=== PATIENT | female | born 1930 | race Hispanic/Latino ===

== ENCOUNTER 2016-10-21 16:40 | Emergency (ER) | payer MEDICARE, BC ==
[2016-10-21 16:41] VITALS: BMI 30.1
[2016-10-21 17:14] VITALS: BP 144/70; PULSE 74; RESP 16; TEMP 98.4; O2SAT 98
--- NOTE | 2016-10-21 18:48 | ED PDOC ---
Lower Extremity Pain/Injury Time Seen by Provider: 10/21/16 18:30 Chief Complaint (Nursing): Lower Extremity Problem/Injury Chief Complaint (Provider): Foot and ankle injury History Per: Patient History/Exam Limitations: no limitations Onset/Duration Of Symptoms: Days Current Symptoms Are (Timing): Still Present Additional Complaint(s): Pt. with R foot, ankle pain. R knee pain. Ongoing for 5 days after injury. She has a bed that is partially tilted and when sleeping she accidentally rolled off. Did not hit head. No LOC. No numbness, tingles, headaches, weakness. Seen by her pcp and told to get x-rays and has rx. Here to eval of injury as it has gotten blacken blue. 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 - Family History Family History: States: Unknown Family Hx - Social History Current smoker - smoking cessation education provided: No Alcohol: None Drugs: Denies - Allergies Allergies/Adverse Reactions: Allergies Allergy/AdvReac Type Severity Reaction Status Date / Time codeine Allergy RASH Verified 10/21/16 17:12 Penicillins Allergy RASH Verified 10/21/16 17:12 Review of Systems Constitutional: Negative for: Weakness Eyes: Negative for: Pain, Vision Change Cardiovascular: Negative for: Chest Pain, Light Headedness Respiratory: Negative for: Shortness of Breath Gastrointestinal: Negative for: Nausea, Vomiting Musculoskeletal: Positive for: Leg Pain, Foot Pain. Negative for: Neck Pain, Shoulder Pain, Arm Pain Neurological: Negative for: Weakness, Dizziness Physical Exam - Reviewed Nursing Documentation Reviewed: Yes Vital Signs Reviewed: Yes - Physical Exam Appears: Positive for: Non-toxic, No Acute Distress Head Exam: Positive for: ATRAUMATIC, NORMAL INSPECTION, NORMOCEPHALIC Skin: Positive for: Normal Color, Warm, DRY Eye Exam: Positive for: Normal appearance, EOMI, PERRL Neck: Positive for: Normal, Painless ROM, Supple Cardiovascular/Chest: Positive for: Regular Rate, Rhythm Respiratory: Positive for: CNT, Normal Breath Sounds Pulses-Dorsalis Pedis (L): 2+ Pulses-Dorsalis Pedis (R): 2+ Pulses-Post. Tibialis (L): 2+ Pulses-Post. Tibialis (R): 2+ Back: Positive for: Normal Inspection. Negative for: L CVA Tenderness, R CVA Tenderness Extremity: Positive for: Normal ROM, Tenderness (L lateral classifier tender, mild swelling and echymosis; L ankle lateral mild swelling. L ankle and foot with full ROM. R knee diffuse mild tender, no laxity of joint, no erythema, has full ROM.) Neurologic/Psych: Positive for: Alert, Oriented - ECG O2 Sat by Pulse Oximetry: 98 - Progress ED Course And Treament: 1851: Dr. Wing to take over care. Fu on x-rays. Disposition - Clinical Impression Clinical Impression: Knee pain, Ankle pain, Pain of foot - Patient ED Disposition Is Patient to be Admitted: Transfer of Care - Disposition Disposition: Transfer of Care Disposition Time: 18:52 Condition: STABLE Patient Signed Over To: Gilbert Wing
--- NOTE | 2016-10-21 21:53 | ED PDOC ---
- ECG O2 Sat by Pulse Oximetry: 98 (RA) Pulse Ox Interpretation: Normal Medical Decision Making Medical Decision Makin signed over to me by Heike Gonzalez MD pending XRs. 2144 XRs are negative per my read. Patient states she has pain medications leftover at with her and does not need Rx to go home. Disposition - Clinical Impression Clinical Impression: Knee pain, Ankle pain, Foot pain - POA Present On Arrival: None - Disposition Referrals: Jennifer Rivera MD [Staff Provider] - Disposition: Routine/Home Disposition Time: 21:45 Condition: STABLE Prescriptions: Acetaminophen [8 Hour Pain Relief] 650 mg PO Q4 #30 tablet.er Instructions: Fall Prevention for Older Adults (ED), Contusion in Adults (DC) Additional Comments - Additional Comments Additional Comments: Scribe Attestation: Documented by Jordi Ball acting as a scribe for Rey Wing MD. Scribe Attestation: All medical record entries made by the Scribe were at my direction and personally dictated by me. I have reviewed the chart and agree that the record accurately reflects my personal performance of the history, physical exam, medical decision making, and the department course for this patient. I have also personally directed, reviewed, and agree with the discharge instructions and disposition.
--- NOTE | 2016-10-22 08:21 | RAD ---
PROCEDURE: Left Foot Radiographs. HISTORY: pain and injury COMPARISON: None. FINDINGS: BONES: No evidence of acute fracture. Diffuse osteopenia. Small calcaneal spur is noted. JOINTS: Arthritic degenerative changes. SOFT TISSUES: Normal. OTHER FINDINGS: None. IMPRESSION: No radiographic evidence of acute fracture or dislocation. Osteopenia. Small calcaneal spur.
--- NOTE | 2016-10-22 08:22 | RAD ---
PROCEDURE: Right Knee Radiographs. HISTORY: injury COMPARISON: Comparison is made to the previous study dated 05/04/2014 FINDINGS: BONES: Patient status post right knee replacement/arthroplasty. No significant interval change in the osseous structures since the previous exam. JOINTS: Normal. No osteoarthritis. JOINT EFFUSION: No radiographic evidence of significant joint effusion. OTHER FINDINGS: None. IMPRESSION: No radiographic evidence of acute pathology or significant interval change since the previous study. Mild soft tissue swelling.
--- NOTE | 2016-10-22 08:25 | RAD ---
PROCEDURE: Left Ankle Radiographs. HISTORY: injury COMPARISON: None FINDINGS: BONES: No evidence of acute fracture. Diffuse osteopenia. Small calcaneal spur. JOINTS: Normal. No osteoarthritis. Ankle mortise maintained. Talar dome intact SOFT TISSUES: [id number] soft tissue swelling. OTHER FINDINGS: None. IMPRESSION: No evidence of acute fracture .
--- NOTE | 2016-10-22 08:26 | RAD ---
PROCEDURE: Left Hand Radiographs. HISTORY: pain COMPARISON: None. FINDINGS: BONES: No evidence of acute fracture. Diffuse osteopenia. JOINTS: Severe arthritic changes. SOFT TISSUES: Mild diffuse soft tissue swelling. OTHER FINDINGS: None. IMPRESSION: No radiographic evidence of acute fracture or dislocation. Diffuse osteopenia. Severe arthritis.
== END 2016-10-21 22:07 | disposition home or self-care (01) ==
LOC: H.ER 16:40
DX: M25.561 Pain in right knee (principal); M79.671 Pain in right foot; S99.912A Unspecified injury of left ankle, initial encounter; X50.9XXA Other and unspecified overexertion or strenuous movements or postures, initial encounter; Y92.89 Other specified places as the place of occurrence of the external cause; E78.00 Pure hypercholesterolemia, unspecified; I10 Essential (primary) hypertension; I25.10 Atherosclerotic heart disease of native coronary artery without angina pectoris; Z88.0 Allergy status to penicillin